=== PATIENT | female | born 1985 | race Caucasian/White ===

== ENCOUNTER 2022-09-11 11:33 | Emergency (ER) | payer SELFPAY ==
[2022-09-11 11:35] VITALS: BP 150/88; PULSE 73; RESP 16; TEMP 36.5; O2SAT 98; BMI 34.7
--- NOTE | 2022-09-11 11:46 | US_ITS ---
INDICATION: bleeding EXAMINATION: Ultrasound US OB Transvaginal TECHNIQUE: Transabdominal pelvic ultrasound was performed. Grayscale, spectral waveform, and color flow Doppler evaluation of the adnexa. COMPARISON: None. LMP: [July 28, 2022 corresponding to gestational age of 6 weeks and 3 days Beta-hCG: Unknown FINDINGS: UTERUS: 8.9 x 4.4 x 5.4 cm. RIGHT OVARY: 3.3 x 3.0 x 2.8 cm. Normal. LEFT OVARY: 3.1 x 2.3 x 2.3 cm. Normal. FREE FLUID: None. INTRAUTERINE GESTATIONAL SAC(s) (size/shape): Single. Size (Mean sac diameter): 0.97 cm corresponding to gestational age of 5 weeks and 5 days and an NATHALY of May 09, 2023. The gestational sac shape is within normal limits. YOLK SAC: Identified the yolk sac measures 0.24 cm. POLE: Not identified. PLACENTA: Not visualized due to age. SUBCHORIONIC HEMORRHAGE: None. US/Transvaginal w/Preg US IMPRESSION: Early intrauterine with no pole identified. Electronically Signed: Maddie Bran MD at 13:23 EST ,
--- NOTE | 2022-09-11 11:48 | ED.VIS.FEGU ---
HPI HPI - Female History of Present Illness Chief Complaint: Vag Bld, Preg Informant: patient Bleeding Issue: Positive for Vaginal bleeding (Spotting spotting) Onset: Today Narrative Narrative: Patient presents secondary to vaginal bleeding. She states she just found out a couple weeks ago that she is with her first . Today when she went to the bathroom she noted some blood with wiping. She has not had any blood in her underwear. She denies any abdominal pain or cramping. She is unsure of her blood type. She is scheduled to see [place] [facility]IM[employer] F[facility]RICATOR but has not yet had her first appointment. [facility] Medical History PCOS (polycystic ovarian syndrome) Home Medications NK 09/11/22 [History Last Taken Unknown] Allergy/AdvReac Type Severity Reaction Status Date / Time No Known Allergies Allergy Verified 09/11/22 11:41 Social History Smoking Status: Never smoker ROS ROS ED Constitutional Constitutional ED: Denies chills or fever(s) Eyes Eyes: Denies change in vision or discharge from eye(s) ENT ENT ED: Denies discharge from eye(s), rhinorrhea or sore throat Cardiovascular Cardiovascular: Denies chest pain or palpitations Respiratory/Chest Respiratory/Chest: Denies cough or dyspnea Gastrointestinal Gastrointestinal: Denies abdominal pain, nausea or vomiting Genitourinary Genitourinary ED: Reports other Details: Vaginal bleeding ; Denies difficulty urinating or dysuria Musculoskeletal Musculoskeletal: Denies back pain or extremity pain Integumentary Denies Abrasions or rash Neurologic Neurologic: Denies headache(s) or weakness Allergic/Immunologic Allergic/Immunologic ED: Denies lip swelling or urticaria EXAM Physical Exam Const Vital Signs: 09/11/22 11:35 09/11/22 13:35 Temperature 97.7 F L Temperature Source Temporal Pulse Rate 73 Respiratory Rate 16 17 Blood Pressure 150/88 H Blood Pressure Mean 108 Pulse Ox 98 Oxygen Delivery Method Room Air Room Air Positive well nourished and well developed General Appearance ED: well developed HEENT Reports normocephalic and head/scalp atraumatic Eyes PERRL and EOMs intact bilaterally Neck supple Chest Wall inspection of chest normal and palpation of chest normal Resp normal respiratory effort and clear to auscultation bilaterally Cardio regular rate and regular rhythm GI normal to inspection, nondistended, normoactive bowel sounds Palpation: soft Extremity normal to inspection Neuro oriented x3 and no sensory deficits noted Sensorium / Orientation: alert Motor Exam: strength 5/5 throughout Psych mental status grossly normal Skin no rashes or lesions noted MDM MDM MDM Narrative Medical decision making narrative: hCG quantitative value is obtained along with blood type. Pelvic ultrasound performed. Lab Data Attestation: I reviewed the patient's lab results. Labs: Laboratory Results - last 24 hr 09/11/22 09/11/22 11:55 11:55 HCG, Quant 6889 H Blood Type O POSITIVE Radiography Diagnostic Testing: Clinical Impression(s) from Imaging Studies Obstetrics Ultrasound 09/11/22 11:46 IMPRESSION: Early intrauterine with no pole identified. Electronically Signed: Maddie Bran MD at 13:23 EST Reading Location ID and State: [facility] / [place] Tel , Service support , Treatment and Re-Evaluation Narrative: Quant returns at [id number]. Blood type is O+. Pelvic ultrasound reveals early intrauterine but no pole identified at this time. Gestational sac measuring's estimate a 5-week 5-day . Test results are discussed with the patient. I did advise her that at this time her values look appropriate, however I cannot guarantee that this will be a successful . She will return in 48 hours for repeat quant. Although she is not scheduled to see her EXPERIMENTAL PLASTICS FABRICATOR until the end of September, I did ask her to call the office on Tuesday and update them on what has occurred. I do believe she would likely need to be seen sooner. Patient was given return instructions. Discharge Plan Triage Chief Complaint: Vag Bld, Preg ED Provider: Priti Cabral Dx/Rx/DC Orders Clinical Impression: Miscarriage, threatened, early Instructions: ED Possible Miscarriage ... Prescriptions: No Action NK Primary Care Provider: Care Physician,No Primary Referrals: Priti Fregoso DO [Med Staff - Active Staff] - 1 Week Care Physician,No Primary [Primary Care Provider] - Activity Restrictions/Additional Instructions: As discussed, please present to the hospital on Tuesday to have your hormone level rechecked. Disposition Disposition: Home, Self Care
[2022-09-11 12:43] LABS: hCG Titer Quant., Serum 6889 mIU/mL (1-3)
[2022-09-11 13:35] VITALS: RESP 17
[2022-09-11 14:03] VITALS: RESP 17
== END 2022-09-11 14:03 | disposition home or self-care (01) ==
PROVIDERS: Emergency Provider Emergency Medicine; Visit Provider Emergency Medicine
DX: O20.0 Threatened abortion (principal); O09.511 Supervision of elderly primigravida, first trimester; Z3A.01 Less than 8 weeks gestation of pregnancy
CPT/HCPCS: 36415; 76817; 84702; 86900; 86901; 99282

== ENCOUNTER → 2022-09-13 | Outpatient (CLI) | payer SELFPAY ==
[2022-09-13 11:35] LABS: hCG Titer Quant., Serum 1565 mIU/mL (1-3)
== END | disposition home or self-care (01) ==
PROVIDERS: Referring Provider Emergency Medicine; Visit Provider Emergency Medicine
DX: O20.0 Threatened abortion (principal)
CPT/HCPCS: 36415; 84702

== ENCOUNTER → 2022-09-21 | Outpatient (CLI) | payer SELFPAY ==
[2022-09-21 11:31] LABS: hCG Titer Quant., Serum 26 mIU/mL (1-3)
== END | disposition home or self-care (01) ==
LOC: LAB 08:12
PROVIDERS: Referring Provider Obstetrics & Gynecology; Visit Provider Obstetrics & Gynecology
DX: O03.9 Complete or unspecified spontaneous abortion without complication (principal)
CPT/HCPCS: 36415; 84702

== ENCOUNTER → 2022-09-28 | Outpatient (CLI) | payer SELFPAY ==
[2022-09-28 09:19] LABS: hCG Titer Quant., Serum 3 mIU/mL (1-3)
== END | disposition home or self-care (01) ==
PROVIDERS: Referring Provider Obstetrics & Gynecology; Visit Provider Obstetrics & Gynecology
DX: O03.9 Complete or unspecified spontaneous abortion without complication (principal)
CPT/HCPCS: 36415; 84702

== ENCOUNTER → 2022-10-25 | Outpatient (CLI) | payer SELFPAY ==
[2022-10-25 10:01] LABS: hCG Titer Quant., Serum 36 mIU/mL (1-3)
== END | disposition home or self-care (01) ==
LOC: LAB 08:46
PROVIDERS: Referring Provider Obstetrics & Gynecology; Visit Provider Obstetrics & Gynecology
DX: N91.2 Amenorrhea, unspecified (principal)
CPT/HCPCS: 36415; 84702

== ENCOUNTER → 2022-10-27 | Outpatient (CLI) | payer SELFPAY ==
[2022-10-27 10:46] LABS: hCG Titer Quant., Serum 84 mIU/mL (1-3)
== END | disposition home or self-care (01) ==
PROVIDERS: Referring Provider Obstetrics & Gynecology; Visit Provider Obstetrics & Gynecology
DX: N91.2 Amenorrhea, unspecified (principal)
CPT/HCPCS: 36415; 84702

== ENCOUNTER → 2022-10-29 | Outpatient (CLI) | payer SELFPAY ==
[2022-10-29 13:01] LABS: Progesterone Level 8.29 ng/mL (See Comment); hCG Titer Quant., Serum 128 mIU/mL (1-3)
== END | disposition home or self-care (01) ==
PROVIDERS: Referring Provider Obstetrics & Gynecology; Visit Provider Obstetrics & Gynecology
DX: N91.2 Amenorrhea, unspecified (principal); N92.0 Excessive and frequent menstruation with regular cycle
CPT/HCPCS: 36415; 84144; 84702

== ENCOUNTER → 2022-10-31 | Outpatient (CLI) | payer SELFPAY ==
[2022-10-31 12:57] LABS: hCG Titer Quant., Serum 274 mIU/mL (1-3)
== END | disposition home or self-care (01) ==
LOC: LAB 12:17
PROVIDERS: Obstetrics & Gynecology; Referring Provider Obstetrics & Gynecology; Visit Provider Obstetrics & Gynecology
DX: N91.2 Amenorrhea, unspecified (principal)
CPT/HCPCS: 36415; 84702

== ENCOUNTER → 2022-11-02 | Outpatient (CLI) | payer SELFPAY ==
[2022-11-02 14:29] LABS: hCG Titer Quant., Serum 343 mIU/mL (1-3)
== END | disposition home or self-care (01) ==
LOC: LAB 12:27
PROVIDERS: Referring Provider Nurse Practitioner Women's Health; Visit Provider Nurse Practitioner Women's Health
DX: N91.0 Primary amenorrhea (principal)
CPT/HCPCS: 36415; 84702

== ENCOUNTER 2022-11-04 15:51 | Emergency (ER) | payer SELFPAY ==
[2022-11-04 15:52] VITALS: BP 137/65; PULSE 77; RESP 15; TEMP 36.7; O2SAT 98; BMI 32.5
[2022-11-04 16:32] LABS: Absolute Lymphocyte Count 1.57 X10^3/uL (0.83-4.51); Absolute Neutrophil Count 5.1 X10^3/uL (2.0-7.7); Basophil# 0.05 X10^3/uL; Basophil% 0.7 % (0-1); Eosinophil# 0.08 X10^3/uL; Eosinophils% 1.1 % (0-5); Hematocrit 41.9 % (37-47); Hemoglobin 13.3 g/dL (12.0-15.0); Lymphocyte # 1.57 X10^3/ul (0.83-4.51); Mean Corp Hgb Conc 31.7 g/dL (32-36); Mean Corpuscular Hgb 28.9 pg (27.0-32.0); Mean Corpuscular Volume 91.1 fL (81-99); Monocyte# 0.66 X10^3/uL; Monocyte% 8.8 % (0-10); NRBC Flagged by Analyzer 0 % (0-5); Neutrophil # 5.11 X10^3/uL (2.7-7.7); Neutrophil % 68.1 % (47-70); Platelet Count 270 K/mm3 (150-450); RBC Distribution Width CV 13.9 % (11.6-14.6); RBC Distribution Width SD 46.7 fl (35.1-43.9); White Blood Count 7.5 K/mm3 (4.4-11.0)
[2022-11-04 16:57] LABS: ALB/GLOB Ratio 1.4 RATIO (0.9-2.4); AST(SGOT) 14 U/L (15-37); Alanine Aminotransfer ALT/SGPT 33 U/L (13-56); Albumin, Serum 3.8 g/dL (3.2-5.0); Alkaline Phosphatase 67 U/L (45-117); Anion Gap 9 (5-15); BUN 15 mg/dL (7-18); BUN/Creat Ratio 24.4 RATIO (10-20); Calcium,Total 9.4 mg/dL (8.5-10.1); Chloride 109 mmol/L (98-107); Creatinine, Serum 0.62 mg/dL (0.55-1.02); EST Glomerular Filtration Rate 115 mL/min (>60); Est Glom Filt Rate - Afr Amer 139 mL/min (>60); Estimated Creatinine Clearance 106.24 ml/min; Globulin 2.8 g/dL (2.2-4.2); Glucose 91 mg/dL (74-106); Potassium 3.5 mmol/L (3.5-5.1); Protein, Total 6.6 g/dL (6.4-8.2); Sodium Level 142 mmol/L (136-145)
--- NOTE | 2022-11-04 17:36 | ED.VIS.FEGU ---
HPI <EMANUEL Flores - Last Filed: 11/04/22 18:02> HPI - Female History of Present Illness Chief Complaint: Narrative Narrative: Is a 37-year-old female with history of PCOS, who presents to the emergency department after a ultrasound showing a ectopic . I spoke with the patient's ELECTRONICS ASSEMBLER AND TESTER Dr. Gómez, the plan for her will be to receive a CBC, CMP to ensure that her liver panel as well as her CBC is unremarkable. Patient will then receive a methotrexate shot. This is secondary to the ectopic . She will follow-up closely with her ELECTRONICS ASSEMBLER AND TESTER outpatient. The patient and the ELECTRONICS ASSEMBLER AND TESTER have been talking today and they know the plan. Patient denies any significant pain, denies any significant vaginal bleeding. Patient's last menstrual cycle was in August when she had a another miscarriage. PFSH <EMANUEL Flores - Last Filed: 11/04/22 18:02> PFS Medical History PCOS (polycystic ovarian syndrome) Home Medications misoprostol 200 mcg tablet (Cytotec) 600 mcg PO ONCE #3 tabs 09/14/22 [Rx Last Taken Unknown] ondansetron 4 mg disintegrating tablet 4 mg PO Q8H PRN PRN Nausea #10 tabs 11/04/22 [Rx Last Taken Unknown] oxycodone-acetaminophen 5 mg-325 mg tablet (Percocet) 1 tab PO Q8H PRN pain 3 days #10 tabs 11/04/22 [Rx Last Taken Unknown] Allergy/AdvReac Type Severity Reaction Status Date / Time No Known Allergies Allergy Verified 09/14/22 14:10 Family History (Updated 09/14/22 @ 14:10 by Shauna Mejia) Mother Heart disease Social History (Updated 09/14/22 @ 14:10 by Shauna Mejia) Smoking Status: Never smoker alcohol intake: never substance use type: does not use caffeine: Yes what type of physical activity do you participate in: none seatbelt use: always do you feel safe at home: Yes additional social history: - [place] ROS <EMANUEL Flores - Last Filed: 11/04/22 18:02> ROS ED ROS Narrative Constitutional: Negative for fever, chills, weight loss, weakness Eyes: Negative for vision loss, vision change, double vision ENT: Negative for any sore throat, ear pain, congestion Cardiovascular: Negative for any chest pain, tightness, palpitations Respiratory: Negative for any cough, sputum production, hemoptysis, dyspnea, dyspnea on exertion, orthopnea Gastrointestinal: Negative for any abdominal pain, nausea, vomiting, diarrhea, constipation, blood in stool, blood in vomit : Negative for any urinary frequency, dysuria, retention, blood in urine. Positive for slight vaginal bleeding, concern for miscarrying Muscle skeletal: Negative for any muscle joint pain, stiffness, myalgias, arthralgias, neck pain, back pain Neurological: Negative for any headache, syncope, numbness or tingling, dizziness Skin: Negative for any rashes, lumps, itching, abrasions, lacerations Psychiatric: Negative for any depression, anxiety, stress, suicidal ideation, homicidal ideation Hematologic: Negative for any easy bruising, excessive bruising, easy bleeding Allergies: Negative for any eczema, hives, rash EXAM <EMANUEL Flores - Last Filed: 11/04/22 18:02> Physical Exam Narrative Exam Narrative: Vital signs reviewed. Patient was in no distress, vital signs are stable. HEET: Head normocephalic atraumatic, TMs clear bilaterally. Posterior pharynx is clear, moist mucous membranes. Nares clear bilaterally. Neck: Supple with no lymphadenopathy or tenderness. No signs of meningismus, negative jolt sign. Cardiac: Regular rate and rhythm no murmurs gallops or rubs, equal peripheral pulses bilaterally. Respiratory: Lungs clear to auscultation bilaterally. No chest tenderness. Abdomen: Soft, nontender, nondistended. No abdominal bruit or pulsatile masses. No hepatosplenomegaly Extremities: No peripheral edema, no signs of gross trauma or deformity. Active full range of motion of all extremities. Neuro: Cranial nerves II through XII intact, no focal neurological deficits. Skin: Clean dry and intact with no rash, purpura, petechiae, vesicles or pustules. Backs/flank: No CVA tenderness, no midline spinal tenderness, no deformity. Psych: Normal mood and affect. No SI, HI or acute psychosis. Const Vital Signs: 11/04/22 15:52 11/04/22 18:34 Temperature 98.1 F Temperature Source Temporal Pulse Rate 77 75 Respiratory Rate 15 14 Blood Pressure 137/65 H 123/75 H Blood Pressure Mean 89 Pulse Ox 98 99 Oxygen Delivery Method Room Air <Dr. Paul Boyer DO - Last Filed: 11/04/22 20:30> Physical Exam Const Vital Signs: 11/04/22 15:52 11/04/22 18:34 Temperature 98.1 F Temperature Source Temporal Pulse Rate 77 75 Respiratory Rate 15 14 Blood Pressure 137/65 H 123/75 H Blood Pressure Mean 89 Pulse Ox 98 99 Oxygen Delivery Method Room Air MDM <EMANUEL Flroes - Last Filed: 11/04/22 18:02> MDM Lab Data Attestation: I reviewed the patient's lab results. Labs: Laboratory Results - last 24 hr 11/04/22 11/04/22 16:25 16:25 WBC 7.5 RBC 4.60 Hgb 13.3 Hct 41.9 MCV 91.1 MCH 28.9 MCHC 31.7 L RDW Std Deviation 46.7 H RDW Coeff of Trish 13.9 Plt Count 270 MPV 10.0 Immature Gran % (Auto) 0.300 Neut % (Auto) 68.1 Lymph % (Auto) 21.0 Lamoure % (Auto) 8.8 Eos % (Auto) 1.1 Baso % (Auto) 0.7 Absolute Neuts (auto) 5.1 Absolute Lymphs (auto) 1.57 Nucleated RBC % 0 Sodium 142 Potassium 3.5 Chloride 109 H Carbon Dioxide 24.0 Anion Gap 9 BUN 15 Creatinine 0.62 Estim Creat Clear Calc 106.24 Est GFR (MDRD) Af Amer 139 Est GFR (MDRD) Non-Af 115 BUN/Creatinine Ratio 24.4 H Glucose 91 Calcium 9.4 Total Bilirubin 0.40 AST 14 L ALT 33 Alkaline Phosphatase 67 Total Protein 6.6 Albumin 3.8 Globulin 2.8 Albumin/Globulin Ratio 1.4 Management Discussion w/another healthcare provider: [facility] Treatment and Re-Evaluation Narrative: Patient appears well, patient appears nontoxic, vital signs are stable. Patient presents to the emergency department for a methotrexate shot secondary to a ectopic found on her ultrasound. I did speak with the patient as well as the patient's ELECTRONICS ASSEMBLER AND TESTER. Looked at the patient's ultrasound from today, there is an ectopic along the right ovary. There is no intrauterine sac. There is no intrauterine . The patient is aware. The patient received 95.5 mg of methotrexate. I will give the medication myself. I did speak with the patient's ELECTRONICS ASSEMBLER AND TESTER who will follow-up with this in the next couple days. Both the patient and her were in the room, given education regarding the shot. As well as different dietary restrictions. All questions answered, patient will follow-up outpatient. She was given return precautions. Patient received 3.8 mL of methotrexate IM. I was able to split it up between 2 different injections to both gluteus muscles. Patient tolerated well. All questions were answered, patient will follow-up with her ELECTRONICS ASSEMBLER AND TESTER. <Dr. Paul Boyer, DO - Last Filed: 11/04/22 20:30> MDM MDM Narrative Medical decision making narrative: This patient was seen with a PA/SENIOR ECOLOGIST Individually assessed they patient including history and physical. I have reviewed everything on the chart that is available and agree with the documentation provided by the PA/SENIOR ECOLOGIST including discussion about the assessment, treatment plan, discussion, and return precautions. Patient with small ectopic found when hCG numbers were not increasing. Does not any pain. She has had some vaginal bleeding. Referred to the ER by ELECTRONICS ASSEMBLER AND TESTER. Patient had normal CBC and CMP in order to get methotrexate. These labs are normal. Patient was given IM methotrexate. Patient discharged stable condition. Impression: 1. Ectopic 2. Vaginal bleeding Lab Data Labs: Laboratory Results - last 24 hr 11/04/22 11/04/22 16:25 16:25 WBC 7.5 RBC 4.60 Hgb 13.3 Hct 41.9 MCV 91.1 MCH 28.9 MCHC 31.7 L RDW Std Deviation 46.7 H RDW Coeff of Trish 13.9 Plt Count 270 MPV 10.0 Immature Gran % (Auto) 0.300 Neut % (Auto) 68.1 Lymph % (Auto) 21.0 Lamoure % (Auto) 8.8 Eos % (Auto) 1.1 Baso % (Auto) 0.7 Absolute Neuts (auto) 5.1 Absolute Lymphs (auto) 1.57 Nucleated RBC % 0 Sodium 142 Potassium 3.5 Chloride 109 H Carbon Dioxide 24.0 Anion Gap 9 BUN 15 Creatinine 0.62 Estim Creat Clear Calc 106.24 Est GFR (MDRD) Af Amer 139 Est GFR (MDRD) Non-Af 115 BUN/Creatinine Ratio 24.4 H Glucose 91 Calcium 9.4 Total Bilirubin 0.40 AST 14 L ALT 33 Alkaline Phosphatase 67 Total Protein 6.6 Albumin 3.8 Globulin 2.8 Albumin/Globulin Ratio 1.4 Discharge Plan Triage Chief Complaint: ED Midlevel Provider: Santy Mcguire ED Provider: Paul Boyer Dx/Rx/DC Orders Clinical Impression: Ectopic Instructions: Ectopic , Methotrexate Ectopic , ED Methotrexate for Ectopic ... Prescriptions: New oxycodone-acetaminophen [Percocet] 5-325 mg tablet 1 tab PO Q8H PRN (Reason: pain) 3 Days Qty: 10 0RF ondansetron 4 mg tablet,disintegrating 4 mg PO Q8H PRN PRN (Reason: Nausea) Qty: 10 0RF No Action misoprostol [Cytotec] 200 mcg tablet 600 mcg PO ONCE Qty: 3 0RF Primary Care Provider: Care Physician,No Primary Referrals: Care Physician,No Primary [Primary Care Provider] - Disposition Disposition: Home, Self Care Discharge Date/Time: 11/04/22 18:35
--- NOTE | 2022-11-04 18:07 | ED.RN ---
PT GIVEN IM INJECTION OF METHOTREXATE PER JELLY KEATING
[2022-11-04 18:34] VITALS: BP 123/75; PULSE 75; RESP 14; O2SAT 99
== END 2022-11-04 18:35 | disposition home or self-care (01) ==
PROVIDERS: Nurse Practitioner; Emergency Provider Student in an Organized Health Care Education/Training Program; Visit Provider Student in an Organized Health Care Education/Training Program
DX: O00.90 Unspecified ectopic pregnancy without intrauterine pregnancy (principal)
CPT/HCPCS: 80053; 85025; 99282; J9250

== ENCOUNTER → 2022-11-04 | Outpatient (CLI) | payer SELFPAY ==
--- NOTE | 2022-11-04 15:05 | US_ITS ---
STUDY: FIRST TRIMESTER OBSTETRICAL ULTRASOUND REASON FOR EXAM: Female, 37 years old viability/ectopic LMP: Unknown. TECHNIQUE: Transvaginal TECHNICAL QUALITY: Adequate. PRIOR ULTRASOUND: None. FINDINGS: There is no demonstrated intrauterine gestational sac. There is no demonstrated yolk sac. The placenta is non-visualized. There is no demonstrated embryo ( pole). The uterus measures 8.1 cm x 5.5 cm x 4.6 cm. Thickened endometrium measuring 12 mm. There is no demonstrated uterine fibroid. The cervix is closed. The right ovary measures 3.1 cm x 3.3 cm x 2.1 cm. There is a 2.2 cm x 1.7 cm x 1.3 cm complex mass in the right ovary with vascularity. Ectopic should be ruled out. There is no visualized right adnexal mass or complex lesion. The left ovary measures 3 cm x 2.3 cm x 2.6 cm. There is no left ovarian cyst. There is no visualized left adnexal mass or complex lesion. There is no fluid in the cul de sac. US/Transvaginal w/Preg US IMPRESSION: No evidence of intrauterine gestation. Findings suggestive of a right ectopic . Electronically Signed: Ken You MD at 16:03 EDT ,
== END | disposition home or self-care (01) ==
PROVIDERS: Referring Provider Obstetrics & Gynecology; Visit Provider Obstetrics & Gynecology
DX: N92.0 Excessive and frequent menstruation with regular cycle (principal)
CPT/HCPCS: 76817

== ENCOUNTER → 2022-11-08 | Outpatient (CLI) | payer SELFPAY ==
[2022-11-08 12:39] LABS: hCG Titer Quant., Serum 241 mIU/mL (1-3)
== END | disposition home or self-care (01) ==
LOC: LAB 11:21
PROVIDERS: Visit Provider Obstetrics & Gynecology
DX: O03.9 Complete or unspecified spontaneous abortion without complication (principal)
CPT/HCPCS: 36415; 84702

== ENCOUNTER → 2022-11-11 | Outpatient (CLI) | payer SELFPAY ==
[2022-11-11 08:29] LABS: hCG Titer Quant., Serum 342 mIU/mL (1-3)
== END | disposition home or self-care (01) ==
PROVIDERS: Referring Provider Obstetrics & Gynecology; Visit Provider Obstetrics & Gynecology
DX: O03.9 Complete or unspecified spontaneous abortion without complication (principal)
CPT/HCPCS: 36415; 84702

== ENCOUNTER → 2022-11-15 | Outpatient (CLI) | payer SELFPAY ==
[2022-11-15 09:09] LABS: hCG Titer Quant., Serum 102 mIU/mL (1-3)
== END | disposition home or self-care (01) ==
LOC: LAB 07:55
PROVIDERS: Referring Provider Obstetrics & Gynecology; Visit Provider Obstetrics & Gynecology
DX: O00.90 Unspecified ectopic pregnancy without intrauterine pregnancy (principal)
CPT/HCPCS: 36415; 84702

== ENCOUNTER → 2022-11-18 | Outpatient (CLI) | payer SELFPAY ==
[2022-11-18 09:02] LABS: hCG Titer Quant., Serum 29 mIU/mL (1-3)
== END | disposition home or self-care (01) ==
LOC: LAB 07:56
PROVIDERS: Referring Provider Obstetrics & Gynecology; Visit Provider Obstetrics & Gynecology
DX: O00.90 Unspecified ectopic pregnancy without intrauterine pregnancy (principal)
CPT/HCPCS: 36415; 84702

== ENCOUNTER → 2022-11-25 | Outpatient (CLI) | payer SELFPAY ==
[2022-11-25 08:45] LABS: hCG Titer Quant., Serum < 1 mIU/mL (1-3)
== END | disposition home or self-care (01) ==
LOC: LAB 07:58
PROVIDERS: Referring Provider Obstetrics & Gynecology; Visit Provider Obstetrics & Gynecology
DX: O00.90 Unspecified ectopic pregnancy without intrauterine pregnancy (principal)
CPT/HCPCS: 36415; 84702

== ENCOUNTER → 2022-12-10 | Outpatient (CLI) | payer SELFPAY ==
[2022-12-10 14:40] LABS: Follicle Stimulating Hormone 5.1 mIU/mL; Luteinizing Hormone 11.7 mIU/mL; Thyroid Stim Hormone (TSH) 0.94 uIU/mL (0.358-3.74)
== END | disposition home or self-care (01) ==
LOC: LAB 13:43
PROVIDERS: Referring Provider Obstetrics & Gynecology; Visit Provider Obstetrics & Gynecology
DX: N91.2 Amenorrhea, unspecified (principal)
CPT/HCPCS: 36415; 82670; 83001; 83002; 83516; 84443

== ENCOUNTER → 2022-12-27 | Outpatient (CLI) | payer SELFPAY ==
--- NOTE | 2022-12-27 11:38 | RAD_ITS ---
INDICATION: recurrent miscarriages EXAMINATION/TECHNIQUE: Routine hysterosalpingography was performed. Total Fluoroscopic Time: 49 seconds AND number of Fluoroscopic Images: 2 OR Radiation dosage index: 22.34 mGy COMPARISON: None. FINDINGS: The uterine cavity contour is unremarkable. There are no filling defects or abnormalities. There is patency of the right fallopian tube with free spill. Dilated proximal left fallopian tube. No evidence of spill from the left fallopian tube. RAD/Salpingogram IMPRESSION: Patency of the right fallopian tube. Electronically Signed: Ken You MD at 12:52 EDT ,
--- NOTE | 2022-12-27 15:25 | OP.PCM_ITS ---
Operative Report Preop diagnosis: Infertility Postop diagnosis: Same plus definite right patency, possible bilateral tubal patency, left mild hydrosalpinx Procedure: Hysterosalpingogram Surgeon: Sunita Mccray Implantable devices: None Complications: None Findings: questionable Bilateral tubal patency and normal uterine cavity dilated left tube proximally- possible spill Operative details: Patient was taken to the x-ray room and was placed on the x- ray table and was in the dorsal lithotomy position. Speculum was placed in the vagina and the cervix prepped with Betadine and the HSG catheter was easily introduced into the uterus and speculum removed. Radiologist was brought in and while pushing radiopaque dye into the uterus via the HSG catheter the radiologist took multiple images and views and confirmed right tubal patency seen, left tube proximally was dilated and possible spill seen from that tube but unable to completely confirm. No gross uterine filling defects or other abnormalities were seen. All instruments removed from the vagina and the uterus without complication. Patient tolerated the procedure well. Multi Select Codes Urinary/Genital Urinary/Genital CPT Codes: 81435 HSG/SIS
== END | disposition home or self-care (01) ==
LOC: RAD 11:38
PROVIDERS: Referring Provider Obstetrics & Gynecology; Visit Provider Obstetrics & Gynecology
DX: O03.9 Complete or unspecified spontaneous abortion without complication (principal)
CPT/HCPCS: 58340; 74740; Q9967

== ENCOUNTER → 2023-02-18 | Outpatient (CLI) | payer SELFPAY ==
[2023-02-18 10:41] LABS: hCG Titer Quant., Serum 49 mIU/mL (1-3)
== END | disposition home or self-care (01) ==
PROVIDERS: PCP Nurse Practitioner Primary Care; Referring Provider Obstetrics & Gynecology; Visit Provider Obstetrics & Gynecology
DX: N91.2 Amenorrhea, unspecified (principal)
CPT/HCPCS: 36415; 84702

== ENCOUNTER → 2023-02-20 | Outpatient (CLI) | payer SELFPAY ==
[2023-02-20 10:25] LABS: hCG Titer Quant., Serum 140 mIU/mL (1-3)
== END | disposition home or self-care (01) ==
LOC: LAB 09:37
PROVIDERS: PCP Nurse Practitioner Primary Care; Visit Provider Obstetrics & Gynecology
DX: N91.2 Amenorrhea, unspecified (principal)
CPT/HCPCS: 36415; 84702

== ENCOUNTER → 2023-02-28 | Outpatient (CLI) | payer SELFPAY ==
[2023-02-28 11:36] LABS: hCG Titer Quant., Serum 4460 mIU/mL (1-3)
== END | disposition home or self-care (01) ==
LOC: LAB 10:18
PROVIDERS: PCP Nurse Practitioner Primary Care; Referring Provider Nurse Practitioner Women's Health; Visit Provider Nurse Practitioner Women's Health
DX: O26.859 Spotting complicating pregnancy, unspecified trimester (principal); Z3A.00 Weeks of gestation of pregnancy not specified
CPT/HCPCS: 36415; 84702

== ENCOUNTER → 2023-03-01 | Outpatient (CLI) | payer SELFPAY ==
--- NOTE | 2023-03-01 15:40 | US_ITS ---
STUDY: FIRST TRIMESTER OBSTETRICAL ULTRASOUND REASON FOR EXAM: Female, 38 years old dating/ well being LMP: 01/21/2023 TECHNIQUE: Transvaginal TECHNICAL QUALITY: Adequate. PRIOR ULTRASOUND: None. FINDINGS: There is no demonstrated intrauterine gestational sac. The uterus measures 8.6 x 4.5 x 6.0 cm. There is no demonstrated uterine fibroid. The cervix is closed. The right ovary measures 3.5 x 2.7 x 2.7 cm. There is a 1.8 cm complex solid and cystic area within the right ovary which may simply represent a follicle but ectopic cannot be excluded. There is no visualized right adnexal mass or complex lesion. The left ovary measures 3.3 x 2.0 x 2.0 cm. There is no left ovarian cyst. There is no visualized left adnexal mass or complex lesion. There is no fluid in the cul de sac. US/Transvaginal w/Preg US IMPRESSION: No intrauterine gestational sac with a questionable mass in the right ovary. Differential diagnosis includes an early intrauterine , early ectopic , or missed . Correlation with serial beta-hCG measurements is recommended. Electronically Signed: Phillip Rodriguez MD at 21:35 EDT ,
== END | disposition home or self-care (01) ==
LOC: US 15:39
PROVIDERS: PCP Nurse Practitioner Primary Care; Referring Provider Obstetrics & Gynecology; Visit Provider Obstetrics & Gynecology
DX: Z34.91 Encounter for supervision of normal pregnancy, unspecified, first trimester (principal); Z87.59 Personal history of other complications of pregnancy, childbirth and the puerperium; Z3A.00 Weeks of gestation of pregnancy not specified
CPT/HCPCS: 76817

== ENCOUNTER → 2023-03-02 | Outpatient (CLI) | payer SELFPAY ==
[2023-03-02 11:44] LABS: hCG Titer Quant., Serum 950 mIU/mL (1-3)
[2023-03-02 14:45] LABS: Absolute Lymphocyte Count 1.87 X10^3/uL (0.83-4.51); Absolute Neutrophil Count 6.5 X10^3/uL (2.0-7.7); Basophil# 0.04 X10^3/uL; Basophil% 0.4 % (0-1); Eosinophil# 0.07 X10^3/uL; Eosinophils% 0.8 % (0-5); Hematocrit 44.6 % (37-47); Hemoglobin 14.3 g/dL (12.0-15.0); Lymphocyte # 1.87 X10^3/ul (0.83-4.51); Lymphocyte % 20.4 % (19-41); Mean Corp Hgb Conc 32.1 g/dL (32-36); Mean Corpuscular Volume 93.5 fL (81-99); Mean Platelet Vol. 9.6 fl (6.2-12.0); Monocyte# 0.64 X10^3/uL; NRBC Flagged by Analyzer 0 % (0-5); Neutrophil # 6.51 X10^3/uL (2.7-7.7); Neutrophil % 70.9 % (47-70); Platelet Count 294 K/mm3 (150-450); RBC Distribution Width CV 14.5 % (11.6-14.6); Red Blood Count 4.77 M/mm3 (4.2-5.4); White Blood Count 9.2 K/mm3 (4.4-11.0)
[2023-03-02 14:51] LABS: ALB/GLOB Ratio 1.2 RATIO (0.9-2.4); AST(SGOT) 13 U/L (15-37); Alanine Aminotransfer ALT/SGPT 36 U/L (13-56); Albumin, Serum 3.8 g/dL (3.2-5.0); Alkaline Phosphatase 68 U/L (45-117); Anion Gap 7 (5-15); BUN 13 mg/dL (7-18); BUN/Creat Ratio 16.8 RATIO (10-20); Calcium,Total 8.9 mg/dL (8.5-10.1); Chloride 106 mmol/L (98-107); Creatinine, Serum 0.77 mg/dL (0.55-1.02); EST Glomerular Filtration Rate 88 mL/min (>60); Est Glom Filt Rate - Afr Amer 107 mL/min (>60); Globulin 3.2 g/dL (2.2-4.2); Glucose 99 mg/dL (74-106); Potassium 3.8 mmol/L (3.5-5.1); Sodium Level 138 mmol/L (136-145)
== END | disposition home or self-care (01) ==
PROVIDERS: PCP Nurse Practitioner Primary Care; Referring Provider Nurse Practitioner Women's Health; Visit Provider Nurse Practitioner Women's Health
DX: O00.90 Unspecified ectopic pregnancy without intrauterine pregnancy (principal); O26.859 Spotting complicating pregnancy, unspecified trimester
CPT/HCPCS: 36415; 80053; 84702; 85025

== ENCOUNTER → 2023-03-07 | Outpatient (CLI) | payer SELFPAY ==
[2023-03-07 09:23] LABS: hCG Titer Quant., Serum 62 mIU/mL (1-3)
== END | disposition home or self-care (01) ==
LOC: LAB 08:07
PROVIDERS: PCP Nurse Practitioner Primary Care; Referring Provider Obstetrics & Gynecology; Visit Provider Obstetrics & Gynecology
DX: O09.90 Supervision of high risk pregnancy, unspecified, unspecified trimester (principal); Z3A.00 Weeks of gestation of pregnancy not specified
CPT/HCPCS: 36415; 84702

== ENCOUNTER → 2023-03-10 | Outpatient (CLI) | payer SELFPAY ==
[2023-03-10 09:29] LABS: hCG Titer Quant., Serum 17 mIU/mL (1-3)
== END | disposition home or self-care (01) ==
LOC: LAB 07:56
PROVIDERS: PCP Nurse Practitioner Primary Care; Referring Provider Obstetrics & Gynecology; Visit Provider Obstetrics & Gynecology
DX: O00.90 Unspecified ectopic pregnancy without intrauterine pregnancy (principal); Z3A.00 Weeks of gestation of pregnancy not specified
CPT/HCPCS: 36415; 84702

== ENCOUNTER → 2023-03-16 | Outpatient (CLI) | payer SELFPAY ==
[2023-03-16 15:42] LABS: hCG Titer Quant., Serum 2 mIU/mL (1-3)
== END | disposition home or self-care (01) ==
LOC: LAB 14:36
PROVIDERS: PCP Nurse Practitioner Primary Care; Referring Provider Obstetrics & Gynecology; Visit Provider Obstetrics & Gynecology
DX: O00.90 Unspecified ectopic pregnancy without intrauterine pregnancy (principal)
CPT/HCPCS: 36415; 84702

== ENCOUNTER → 2023-04-01 | Outpatient (CLI) | payer SELFPAY ==
[2023-04-01 12:04] LABS: Fibrinogen 407 mg/dl (203-444); Partial Thromboplast Time 26.5 Seconds (24.1-36.2)
[2023-04-11 13:07] LABS: Anti-Cardiolipin Ab, IgA, Qn < 9 APL U/mL (0-11); Anti-Cardiolipin Ab, IgG, Qn < 9 GPL U/mL (0-14); Anti-Cardiolipin Ab, IgM, Qn 9 MPL U/mL (0-12); Beta-2-Glycoprotein I IgA <9 (0-25); Beta-2-Glycoprotein I IgG <9 (0-20); Beta-2-Glycoprotein I IgM <9 (0-32); Dilute Russell Viper Venom 31.1 sec (0.0-47.0); Interpretation Comment: (.); Protein C Antigen 83 % (60-150); Protein C, Functional 112 % (73-180); Protein S, Free 90 % (61-136); Protein S, Funtional 58 % (63-140); Protein S, Total 82 % (60-150); Thrombin Time 17.1 sec (0.0-23.0); dPT CONFIRMATION RATIO 1.02 Ratio (0.00-1.34)
== END | disposition home or self-care (01) ==
LOC: LAB 11:06
PROVIDERS: PCP Nurse Practitioner Primary Care; Referring Provider Obstetrics & Gynecology; Visit Provider Obstetrics & Gynecology
DX: O03.9 Complete or unspecified spontaneous abortion without complication (principal); N96 Recurrent pregnancy loss; O26.851 Spotting complicating pregnancy, first trimester; O99.891 Other specified diseases and conditions complicating pregnancy; Z3A.00 Weeks of gestation of pregnancy not specified
CPT/HCPCS: 36415; 81241; 81291; 85302; 85303; 85305; 85306; 85384; 85705; 85730; 86146; 86147

== ENCOUNTER → 2023-05-03 | Outpatient (CLI) | payer SELFPAY ==
[2023-05-06 06:08] LABS: Protein S, Free 94 % (61-136); Protein S, Funtional 80 % (63-140); Protein S, Total 80 % (60-150)
== END | disposition home or self-care (01) ==
LOC: LAB 13:45
PROVIDERS: PCP Nurse Practitioner Primary Care; Referring Provider Obstetrics & Gynecology; Visit Provider Obstetrics & Gynecology
DX: O00.90 Unspecified ectopic pregnancy without intrauterine pregnancy (principal)
CPT/HCPCS: 36415; 85305; 85306

== ENCOUNTER → 2023-05-16 | Outpatient (CLI) | payer SELFPAY ==
--- NOTE | 2023-05-16 15:45 | US_ITS ---
STUDY: ULTRASOUND OF THE FEMALE PELVIS - COMPLETE REASON FOR EXAM: Female, 38 years old. Hydrosalpinx LMP: May 06, 2023. TECHNIQUE: Transabdominal and Transvaginal TECHNICAL QUALITY: Adequate. COMPARISON: None. FINDINGS: The uterus is anteverted and is in a midline position. The uterus measures 9 cm x 5.5 cm x 3.6 cm. Normal uterine cervix. The endometrium measures 7 mm in thickness, and is hyperechoic. There is no demonstrated endometrial mass. There is no demonstrated myometrial mass. I.U.D. - The patient does not have an I.U.D. The right ovary is visualized. The right ovary measures 3.3 cm x 2.8 cm x 2.7 cm. A dominant follicle is seen measuring 1.1 cm x 0.9 cm x 0.9 cm. There is no visualized right adnexal mass or complex lesion. There is normal arterial and normal venous vascularity. The left ovary is visualized. The left ovary measures 3.5 cm x 2.5 cm x 2.8 cm. A dominant follicle is seen measuring 1.6 x 1.17 x 1.3 cm. A tubular nonvascular structure is seen in the left adnexa measuring 3 mm. This may represent a left-sided hydrosalpinx. There is normal arterial and normal venous vascularity. There is no fluid in the cul-de-sac. The pre void volume of the bladder was 603 ml. US/Pelvic w/ Transvaginal IMPRESSION: Dominant follicles are seen in both ovaries. Findings suggestive of a left-sided hydrosalpinx measuring 3 mm in diameter. Electronically Signed: Ken You MD at 9:25 EDT ,
== END | disposition home or self-care (01) ==
LOC: US 15:45
PROVIDERS: PCP Nurse Practitioner Primary Care; Referring Provider Obstetrics & Gynecology; Visit Provider Obstetrics & Gynecology
DX: N70.11 Chronic salpingitis (principal)
CPT/HCPCS: 76830; 76856

== ENCOUNTER → 2023-07-04 | Outpatient (CLI) | payer SELFPAY ==
[2023-07-04 15:18] LABS: Absolute Lymphocyte Count 1.32 X10^3/uL (0.83-4.51); Absolute Neutrophil Count 5.3 X10^3/uL (2.0-7.7); Basophil# 0.02 X10^3/uL; Basophil% 0.3 % (0-1); Eosinophil# 0.06 X10^3/uL; Eosinophils% 0.8 % (0-5); Hemoglobin 14.3 g/dL (12.0-15.0); Lymphocyte # 1.32 X10^3/ul (0.83-4.51); Lymphocyte % 18.5 % (19-41); Mean Corp Hgb Conc 32.5 g/dL (32-36); Mean Corpuscular Hgb 30.3 pg (27.0-32.0); Mean Corpuscular Volume 93.2 fL (81-99); Monocyte# 0.48 X10^3/uL; Monocyte% 6.7 % (0-10); NRBC Flagged by Analyzer 0 % (0-5); Neutrophil # 5.25 X10^3/uL (2.7-7.7); Neutrophil % 73.4 % (47-70); Platelet Count 253 K/mm3 (150-450); RBC Distribution Width SD 48.1 fl (35.1-43.9); Red Blood Count 4.72 M/mm3 (4.2-5.4); White Blood Count 7.2 K/mm3 (4.4-11.0)
[2023-07-04 15:31] LABS: Erythrocyte Sedimentation Rate 1 mm/hr (0-30)
[2023-07-04 16:02] LABS: ALB/GLOB Ratio 1.3 RATIO (0.9-2.4); AST(SGOT) 10 U/L (15-37); Alanine Aminotransfer ALT/SGPT 25 U/L (13-56); Alkaline Phosphatase 68 U/L (45-117); Anion Gap 7 (5-15); BUN 21 mg/dL (7-18); BUN/Creat Ratio 30.4 RATIO (10-20); CRP < 2.90 mg/L (0.0-3.0); Calcium,Total 8.7 mg/dL (8.5-10.1); Chloride 109 mmol/L (98-107); Creatinine, Serum 0.69 mg/dL (0.55-1.02); EST Glomerular Filtration Rate 100 mL/min (>60); Est Glom Filt Rate - Afr Amer 122 mL/min (>60); Globulin 3.1 g/dL (2.2-4.2); Glucose 93 mg/dL (74-106); Potassium 3.8 mmol/L (3.5-5.1); Protein, Total 7.1 g/dL (6.4-8.2); Sodium Level 142 mmol/L (136-145); T4 Free Direct 1.03 ng/dL (0.76-1.46); Thyroid Stim Hormone (TSH) 0.86 uIU/mL (0.358-3.74)
[2023-07-06 14:09] LABS: Anti-Nuclear Antibody Test Negative (.); Anti-dsDNA Ab <1 IU/mL (0-9); RNP Ab <0.2 AI (0.0-0.9); Smith Ab <0.2 AI (0.0-0.9)
== END | disposition home or self-care (01) ==
LOC: LAB 14:01
PROVIDERS: PCP Nurse Practitioner Primary Care; Referring Provider Physician Assistant; Visit Provider Physician Assistant
DX: D89.89 Other specified disorders involving the immune mechanism, not elsewhere classified (principal)
CPT/HCPCS: 36415; 80053; 84439; 84443; 85025; 85652; 86038; 86140; 86225; 86235

== ENCOUNTER 2023-07-12 10:30 | Day surgery (SDC) | payer SELFPAY ==
[2023-07-04 14:27] LABS: Hematocrit 43.1 % (37-47); Hemoglobin 13.8 g/dL (12.0-15.0); Mean Corpuscular Hgb 29.5 pg (27.0-32.0); Mean Corpuscular Volume 92.1 fL (81-99); Platelet Count 241 K/mm3 (150-450); RBC Distribution Width SD 47.5 fl (35.1-43.9); Red Blood Count 4.68 M/mm3 (4.2-5.4)
--- NOTE | 2023-07-12 | UTC_PTH ---
PATIENT: ANGELA HOOKER LOC: [facility] – [place] U#:[id number] AGE/SX: 38/F ROOM: RE07/12/[address]: Dr. Priti Fregoso DO : 1985 BED: DIS: 07/12/2023 SPEC #: [id number] RECD: 07/12/23 14:15 STATUS: ISAAC DASILVAClarice #: [id number] JAYDE: 07/12/23 00:[address]: Priti Fregoso DEPT: SURGICAL PATHOLOGY RECD BY: Augustus Burch ENTERED: 07/13/23 07:36 SP TYPE: CA RANGEL GALLEGO DR: Dorcas Lal NP Tissues: Uterine cervix, NOS Procedures: Surgery Specimen Level IV HEADER OPERATION: Diagnostic laparoscopy, chromopertubation PRE-OP DIAGNOSIS: Amenorrhea, ectopic TISSUE SUBMITTED: Uterine curettings MICROSCOPIC DIAGNOSIS Endometrium, curettings: Secretory endometrium with stromal and focal glandular breakdown. AM:torie 07/14/2023 MICROSCOPIC DESCRIPTION Slides are reviewed. GROSS DESCRIPTION Received in fixative is one container labeled with the patient's name and designated uterine curettings. The specimen consists of multiple irregular fragments of light to dark lorenz soft tissue that in aggregate measure 2.5 x 1.5 x 0.1 cm. The specimen is totally submitted in one cassette. / AM:torie 07/13/2023 TC:5 CPT: 70375
[2023-07-12 10:58] LABS: Internal QC Validated? YES +Cl - CLEAR BKGD; Pregnancy, Urine Negative Negative; Record Kit Lot#,Urine Preg HCG0000667200
[2023-07-12] MEDS: Lactated Ringers 1,000 ML 15 ML IV (11:03)
[2023-07-12 11:04] VITALS: BP 139/70; PULSE 63; RESP 18; TEMP 36.3; O2SAT 100; BMI 29.5
--- NOTE | 2023-07-12 12:05 | DCINST_ITS ---
Discharge Instructions Diet Discharge Diet: No restrictions Activity Discharge Activity: Return to Normal Activity, May Not Drive (for two weeks or while taking narcotic pain medications.), May Shower and May Take a Tub Bath (in 7 days) May resume sexual activity in: 1 week Weight Bearing Status: Full weight bearing Dressing / Incision Call your doctor if you observe: Using more than 1 pad per hour, Shortness of breath, Chest pain and Uncontrolled pain Suture Line Care: Avoid Pulling/Pushing and Avoid Pinching/Bending Remove Dressing in: 1 week (if present) Cleanse incision/area with: Soap & Water and Keep Dressing Clean & Dry Follow Up Care Please Follow Up With: Priti Fregoso DO When: Call to make an appointment with your doctor for a follow up incision check in 1-2 weeks. Test Results: Test results from this visit will be discussed in further detail at your follow- up appointment, if applicable. Discharge Plan Admission Primary Reason for Your Visit: laparoscopy Attending Provider: Priti Fregoso Primary Care Provider: Dorcas Lal NP Discharge Orders/Prescriptions Prescriptions: New oxycodone-acetaminophen [Percocet] 5-325 mg tablet 1 tab PO Q4H PRN (Reason: pain) 7 Days Qty: 10 0RF Rx Instructions: 1-2 tabs q 4 hrs as needed for pain naproxen 500 mg tablet 500 mg PO BID PRN (Reason: pain) Qty: 30 0RF No Action Prenatabs FA 29-1 mg tablet 1 tab PO DAILY Referrals / Follow Up: Dorcas Lal NP, T[employer] C[employer] ATTENDANT-C [Primary Care Provider] - Disposition Disposition (needs filled in before D/C Order can be placed): Home, Self Care
--- NOTE | 2023-07-12 12:05 | PCM.HP.BLA ---
History and Physical Date of Admission: 07/12/23 Intake Vital Signs 03/16/2313:39 07/04/2314:21 07/04/2314:22 Height 5 ft 4 in 5 ft 4 in 5 ft 4 in Weight: 173 lb BMI 29.7 BP 138/87 H Intake Visit Reasons: diag. 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 Required: No Is patient in pain?: No Allergies No Known Allergies Allergy (Verified 07/04/23 14:21) Medications vits,calcium no.78-iron fumarate-folic acid 29 mg-1 mg tablet (Prenatabs FA) 1 tab PO DAILY 06/27/23 [History Confirmed 07/04/23] Post menopausal: No Patient : No : No PFSH Medical History Amenorrhea Back pain Leg cramps Loose, teeth Migraine headache Miscarriage Non-smoker PCOS (polycystic ovarian syndrome) Spotting Surgical History Hx of wisdom tooth extraction Family History Mother Heart disease Social History Smoking Status: Never smoker alcohol intake: never substance use type: does not use caffeine: Yes what type of physical activity do you participate in: none seatbelt use: always do you feel safe at home: Yes additional social history: - [place] HPI diag. lap, chromopertubation, possible fulguration Details: ANGELA HOOKER is a 38 year old who presents for follow up miscarriage vs ectopic and treatment with methotrexate. last quant was 17. She is wanting more definitive answers as to why she has had 2 ectopic pregnancies in a row. Her hsg in November showed hydrosalpinx of the left fallopian tube, however this last ultrasound showed a possible ectopic on the right side. She is not interested in seeing RGI again and is scheduled for a diagnostic laparoscopy, fulguration of endometriosis, chromopertubation, and possible left salpingectomy. History 2 Elective abortions Hx Para 0 Spontaneous abortions 1 Hx # Term Pregnancies Ectopic pregnancies 1 Hx # Pregnancies Multiple births # of living children ROS Const ROS Unobtainable: All systems reviewed & are unremarkable except as noted in H Resp Resp: Reports system reviewed and no additional complaints, except as documented; Denies cough GI GI: Reports as per HPI Psych Psych: Reports system reviewed and no additional complaints, except as documented Exam Const General: cooperative, healthy appearing, comfortable and no acute distress Resp Effort & Inspection: normal respiratory effort Skin General: no rashes or lesions noted Psych Appearance: grossly normal Speech and Movement: speech and movement normal Coding Level of Care Code Off vis,est,level 3 Diagnoses Amenorrhea N91.2 Ectopic O00.90 Assessment and Plan Assessment and Plan (1) Amenorrhea: Status: Acute Comment: HCG x 2 (2) Ectopic : Status: Acute Comment: 2nd one(first was in October and MTX given). Rpt: Plan After discussing the patient's diagnosis and treatment plan options, patient wishes to proceed with surgical management. I have discussed with the patient the risks, benefits, and alternatives of the procedure which include but are not limited to risks of anesthesia, bleeding, infection, possible damage to bowel, bladder, or surrounding vasculature which could lead to additional surgery to evaluate any complications. Patient agrees to procedure and wishes to proceed. ACOG/uptodate references given for additional information regarding procedure.
[2023-07-12] MEDS: Cefotetan 2 GM in 0.9% NS 100 ML IV (12:36)
[2023-07-12] MEDS: Methylene Blue 1% 100 MG/10 ML VIAL (13:06)
[2023-07-12] MEDS: Bupivacaine 0.25% 30 ML Vial (13:06)
--- NOTE | 2023-07-12 13:56 | PCM.OPRPT ---
Problems Associated Problem List Diagnoses (1) Amenorrhea: (2) History of ectopic : Report of Operation Date of Procedure: 07/12/23 Pre-Operative Diagnosis: history of recurrent ectopic , desires fertility, amenorrhea Post-Operative Diagnosis: history of recurrent ectopic , desires fertility, amenorrhea Surgery/Procedure Performed:: diagnostic laparoscopy, chromopertubation, diagnostic hysteroscopy, dilation and curettage Description of Surgical Findings:: normal bilateral fallopian tubes and ovaries, patent right fallopian tube, non-patent left fallopian tube. Possible polyp structure in the uterus. Tubal ostia absent on left side of uterus Surgeon: Priti Fregoso superintendent drilling: Shahla Spangler superintendent drilling: Ritika Hernandez Type of Anesthesia: General Anesthesiologist: Júnior Shahid Specimen's removed: endometrial curetting Estimated Blood Loss (mL): 20cc Description of Procedure: Patient was taken in the operating room and was placed under general anesthesia was prepped and draped in normal sterile fashion in the dorsal lithotomy position. Bladder was drained of clear urine and SCDs were on preoperatively. A single toothed tenaculum was placed on the anterior lip the cervix and a uterine manipulator was inserted. Attention was then paid to the abdominal portion of the procedure and the umbilicus was elevated with towel clamps and injected with Marcaine and after a 5 mm incision was made and a 5 mm laparoscope was inserted into the abdomen under direct visualization. There was some difficulty in visualizing entry so a veres needle was used to obtain pneumoperitoneum. The 5mm trocar was then inserted with direct visualization using the laparoscope. The Abdomen was insufflated with CO2 gas and the patient was placed in trundelenburg position. A left lower quadrant 5 mm port was placed under direct visualization. Methylene blue was injected through the uterine manipulator and the right fallopian tube trained right away. The manipulator was pulled back to ensure that the tube on the left was not being blocked by pressure from the device and this still did not shows spillage. Both fallopian tubes and ovaries appeared normal without cysts, masses, lesions, or edema. There were no signs of endometriosis and the bowel and liver appeared normal. The uterus had a somewhat irregular appearance. the right cornual area was larger than the left. The decision was made to perform a diagnostic hysteroscopy. All laparoscopic instruments were removed and the port sites were closed with a 4-0 monocryl suture. The cervix was progressively dilated to allow passage of a 5 mm hysteroscope. The lining was fully visualized and noted to have some polyp like structures obscuring the view. Uterine sounded to 11 cm. Al curettage was performed , and all specimens were sent to pathology. After the curettage, the uterus was distended fully with saline and the right ostia was noted to be visible, but the left was not. All instruments were removed from the vagina and excellent hemostasis was noted. Patient was awoken and taken to recovery in stable condition. Complications none Admit VTE Documentation VTE Present on Admission: No VTE Mechan Device Prophylaxis: SCD's VTE Pharm Prophylaxis ordered?: No Multi Select Codes Urinary/Genital Urinary/Genital CPT Codes: 33259 Hysteroscopy,EMC, Polypectomy and 08365 Laparoscopic fulguration tubes
[2023-07-12 13:58] VITALS: BP 132/74; BP 139/70; PULSE 78; RESP 16; TEMP 36.6; O2SAT 98
[2023-07-12 14:00] VITALS: BP 132/72; BP 139/70; PULSE 73; RESP 16; O2SAT 99
[2023-07-12 14:15] VITALS: BP 136/74; BP 139/70; PULSE 74; RESP 16; O2SAT 99
[2023-07-12 14:21] VITALS: BP 139/70; BP 140/76; PULSE 67; RESP 16; TEMP 36.4; O2SAT 100
[2023-07-12] MEDS: Ketorolac 30 MG/ML Syringe IV (14:21)
[2023-07-12 15:58] VITALS: BP 133/67; BP 139/70; PULSE 75; RESP 16; TEMP 36.1; O2SAT 97
== END 2023-07-12 16:03 | disposition home or self-care (01) ==
LOC: SDC 10:31 → AC 10:32
PROVIDERS: PCP Nurse Practitioner Primary Care; Referring Provider Obstetrics & Gynecology; Visit Provider Obstetrics & Gynecology
PROC: (CPT 49320; principal; 2023-07-12 12:05)
DX: N91.2 Amenorrhea, unspecified (principal); Z87.59 Personal history of other complications of pregnancy, childbirth and the puerperium
CPT/HCPCS: 58558; 00952; 36415; 81025; 85027; 86850; 86900; 86901; 88305; J7120; J2405

== ENCOUNTER → 2023-11-09 | Outpatient (CLI) | payer SELFPAY ==
[2023-11-09 10:20] LABS: hCG Titer Quant., Serum 20 mIU/mL (1-3)
== END | disposition home or self-care (01) ==
LOC: LAB 08:30
PROVIDERS: PCP Nurse Practitioner Primary Care; Referring Provider Nurse Practitioner Women's Health; Visit Provider Nurse Practitioner Women's Health
DX: N91.2 Amenorrhea, unspecified (principal)
CPT/HCPCS: 36415; 84702

== ENCOUNTER → 2023-11-11 | Outpatient (CLI) | payer SELFPAY ==
[2023-11-11 09:30] LABS: hCG Titer Quant., Serum 12 mIU/mL (1-3)
== END | disposition home or self-care (01) ==
LOC: LAB 08:26
PROVIDERS: PCP Nurse Practitioner Primary Care; Referring Provider Obstetrics & Gynecology; Visit Provider Obstetrics & Gynecology
DX: N91.2 Amenorrhea, unspecified (principal)
CPT/HCPCS: 36415; 84702

== ENCOUNTER → 2023-11-16 | Outpatient (CLI) | payer SELFPAY ==
[2023-11-16 10:11] LABS: hCG Titer Quant., Serum < 1 mIU/mL (1-3)
== END | disposition home or self-care (01) ==
PROVIDERS: PCP Nurse Practitioner Primary Care; Visit Provider Obstetrics & Gynecology
DX: O09.90 Supervision of high risk pregnancy, unspecified, unspecified trimester (principal); Z3A.00 Weeks of gestation of pregnancy not specified
CPT/HCPCS: 36415; 84702

== ENCOUNTER → 2024-01-10 | Outpatient (CLI) | payer SELFPAY ==
[2024-01-10 09:55] LABS: hCG Titer Quant., Serum 146 mIU/mL (1-3)
== END | disposition home or self-care (01) ==
LOC: LAB 08:33
PROVIDERS: PCP Nurse Practitioner Primary Care; Referring Provider Nurse Practitioner Women's Health; Visit Provider Nurse Practitioner Women's Health
DX: N91.2 Amenorrhea, unspecified (principal)
CPT/HCPCS: 36415; 84702

== ENCOUNTER → 2024-01-12 | Outpatient (CLI) | payer SELFPAY ==
[2024-01-12 09:43] LABS: hCG Titer Quant., Serum 348 mIU/mL (1-3)
== END | disposition home or self-care (01) ==
PROVIDERS: PCP Nurse Practitioner Primary Care; Visit Provider Obstetrics & Gynecology
DX: N91.2 Amenorrhea, unspecified (principal)
CPT/HCPCS: 36415; 84702

== ENCOUNTER → 2024-01-14 | Outpatient (CLI) | payer SELFPAY ==
[2024-01-14 09:38] LABS: hCG Titer Quant., Serum 879 mIU/mL (1-3)
== END | disposition home or self-care (01) ==
LOC: LAB 08:13
PROVIDERS: PCP Nurse Practitioner Primary Care; Referring Provider Obstetrics & Gynecology; Visit Provider Obstetrics & Gynecology
DX: N91.2 Amenorrhea, unspecified (principal)
CPT/HCPCS: 36415; 84702

== ENCOUNTER → 2024-01-19 | Outpatient (CLI) | payer SELFPAY ==
--- NOTE | 2024-01-19 10:47 | US_ITS ---
STUDY: FIRST TRIMESTER OBSTETRICAL ULTRASOUND REASON FOR EXAM: Female, 39 years old viability LMP: December 14, 2023. TECHNIQUE: Transvaginal TECHNICAL QUALITY: Adequate. PRIOR ULTRASOUND: None. FINDINGS: There is visualization of a single gestational sac in a normal intrauterine position. The mean sac diameter (MSD) measures 9 mm, indicating an estimated gestational age (EGA) of 5 weeks, 5 days. The gestational sac shape is within normal limits. There is a visualized yolk sac. The yolk sac measures 2 mm. The placenta is non-visualized. There is no demonstrated embryo ( pole). The estimated gestation age (EGA) by LMP is 5 weeks, 1 days. The estimated date of delivery (NATHALY) by LMP is September 19, 2024. The estimated gestation age (EGA) by US is 5 weeks, 5 days. The estimated date of delivery (NATHALY) by US is September 15, 2024. The uterus measures 7.6 x 4.9 cm x 4.2 cm. There is no demonstrated uterine fibroid. The cervix is closed. The right ovary measures 2.9 cm x 2.5 cm x 2.9 cm. There is a 1.7 cm x 1.6 x 1.2 cm complex cyst in the right adnexa most likely representing resolving corpus luteum cyst. There is no visualized right adnexal mass or complex lesion. The left ovary measures 3 cm x 1.7 cm x 1.7 cm. There is no left ovarian cyst. There is no visualized left adnexal mass or complex lesion. There is no fluid in the cul de sac. US/Transvaginal w/Preg US IMPRESSION: Single intrauterine gestation with a mean gestational age of 5 weeks and 5 days. Electronically Signed: Ken You MD at 12:23 EDT ,
== END | disposition home or self-care (01) ==
LOC: US 10:47
PROVIDERS: PCP Nurse Practitioner Primary Care; Referring Provider Obstetrics & Gynecology; Visit Provider Obstetrics & Gynecology
DX: O26.851 Spotting complicating pregnancy, first trimester (principal); N96 Recurrent pregnancy loss; Z87.59 Personal history of other complications of pregnancy, childbirth and the puerperium; Z3A.00 Weeks of gestation of pregnancy not specified; O99.891 Other specified diseases and conditions complicating pregnancy
CPT/HCPCS: 76817

== ENCOUNTER → 2024-01-27 | Outpatient (CLI) | payer SELFPAY ==
--- NOTE | 2024-01-27 11:25 | US_ITS ---
STUDY: FIRST TRIMESTER OBSTETRICAL ULTRASOUND REASON FOR EXAM: Female, 39 years old spotting in early LMP: December 14, 2023. TECHNIQUE: Transvaginal TECHNICAL QUALITY: Adequate. PRIOR ULTRASOUND: Comparison is made with prior study dated January 19, 2024. FINDINGS: There is visualization of a single gestational sac in a normal intrauterine position. The mean sac diameter (MSD) measures 2.26 cm, indicating an estimated gestational age (EGA) of 7 weeks, 2 days. The gestational sac shape is within normal limits. There is a visualized yolk sac. The yolk sac measures 2.8 mm. The placenta is non-visualized. There is visualization of a live embryo. The crown-rump length (CRL) measures 2.7 mm, indicating an estimated gestational age (EGA) of 6 weeks, 1 days. There is demonstrated cardiac activity with a heart rate of 124 bpm. The estimated gestation age (EGA) by LMP is 6 weeks, 2 days. The estimated date of delivery (NATHALY) by LMP is September 19, 2024. The estimated gestation age (EGA) by US is 6 weeks, 5 days. The estimated date of delivery (NATHALY) by US is September 16, 2024. The uterus measures 9 cm x 5.7 cm x 4.8 cm. Findings suggestive of a small subchorionic hemorrhage adjacent to the gestational sac. There is no demonstrated uterine fibroid. The cervix is closed. The right ovary measures 3.3 cm x 2.5 cm x 3.2 cm. There is a corpus luteum cyst measuring 2 cm x 1.6 cm x 1.2 cm. There is no visualized right adnexal mass or complex lesion. The left ovary measures 3.7 cm x 2.5 cm x 2.5 cm. There is no left ovarian cyst. There is no visualized left adnexal mass or complex lesion. There is no fluid in the cul de sac. US/Transvaginal w/Preg US IMPRESSION: Intrauterine gestation of 6 weeks and 5 days. Right corpus luteum cyst. Findings suggestive of a small subchorionic bleed. Electronically Signed: Ken You MD at 14:40 EDT ,
== END | disposition home or self-care (01) ==
LOC: US 11:23
PROVIDERS: PCP Nurse Practitioner Primary Care; Referring Provider Obstetrics & Gynecology; Visit Provider Obstetrics & Gynecology
DX: O26.20 Pregnancy care for patient with recurrent pregnancy loss, unspecified trimester (principal); O26.851 Spotting complicating pregnancy, first trimester; Z87.59 Personal history of other complications of pregnancy, childbirth and the puerperium; Z3A.00 Weeks of gestation of pregnancy not specified
CPT/HCPCS: 76817

== ENCOUNTER → 2024-02-06 | Outpatient (CLI) | payer SELFPAY ==
[2024-02-06 16:34] LABS: Absolute Neutrophil Count 9.1 X10^3/uL (2.0-7.7); Basophil# 0.04 X10^3/uL; Basophil% 0.4 % (0-1); Eosinophil# 0.06 X10^3/uL; Eosinophils% 0.5 % (0-5); Hematocrit 42.6 % (37-47); Hemoglobin 13.8 g/dL (12.0-15.0); Lymphocyte % 12.3 % (19-41); Mean Corp Hgb Conc 32.4 g/dL (32-36); Mean Corpuscular Hgb 30.1 pg (27.0-32.0); Mean Corpuscular Volume 92.8 fL (81-99); Mean Platelet Vol. 10.2 fl (6.2-12.0); Monocyte# 0.74 X10^3/uL; Monocyte% 6.5 % (0-10); NRBC Flagged by Analyzer 0 % (0-5); Neutrophil # 9.07 X10^3/uL (2.7-7.7); Neutrophil % 79.5 % (47-70); Platelet Count 259 K/mm3 (150-450); RBC Distribution Width CV 13.8 % (11.6-14.6); RBC Distribution Width SD 46.9 fl (35.1-43.9); Red Blood Count 4.59 M/mm3 (4.2-5.4); White Blood Count 11.4 K/mm3 (4.4-11.0)
[2024-02-06 16:39] LABS: Hemoglobin A1c 4.9 % (3.8-5.6)
[2024-02-06 17:49] LABS: HIV - WCH Non-Reactive (Nonreactive); Hepatitis B Surface Antigen Non-Reactive (Nonreactive); Hepatitis C Antibody Non-Reactive (Nonreactive); Rubella IgG Reactive (Nonreactive); Syphilis Antibodies Non-reactive
[2024-02-10 11:09] LABS: HPV APTIMA, High Risk Negative (Negative)
[2024-02-10 18:11] LABS: Chlamydia By Nucleic Acid AMP Negative; Gonococcus By Nucleic Acid AMP Negative
== END | disposition home or self-care (01) ==
PROVIDERS: PCP Nurse Practitioner Primary Care; Referring Provider Obstetrics & Gynecology; Visit Provider Obstetrics & Gynecology
DX: O99.210 Obesity complicating pregnancy, unspecified trimester (principal); Z3A.00 Weeks of gestation of pregnancy not specified
CPT/HCPCS: 36415; 83036; 85025; 86703; 86762; 86780; 86803; 86850; 86900; 86901; 87086; 87088; 87340; 87491; 87591; 87624; 88175; G0145

== ENCOUNTER → 2024-06-28 | Outpatient (CLI) | payer SELFPAY ==
[2024-06-28 09:07] LABS: Absolute Lymphocyte Count 1.25 X10^3/uL (0.83-4.51); Basophil# 0.05 X10^3/uL; Basophil% 0.4 % (0-1); Eosinophil# 0.12 X10^3/uL; Hematocrit 36.6 % (37-47); Hemoglobin 11.9 g/dL (12.0-15.0); Lymphocyte # 1.25 X10^3/ul (0.83-4.51); Lymphocyte % 10.8 % (19-41); Mean Corp Hgb Conc 32.5 g/dL (32-36); Mean Corpuscular Hgb 30.4 pg (27.0-32.0); Mean Corpuscular Volume 93.4 fL (81-99); Mean Platelet Vol. 9.9 fl (6.2-12.0); Monocyte# 0.63 X10^3/uL; Monocyte% 5.4 % (0-10); NRBC Flagged by Analyzer 0 % (0-5); Neutrophil # 9.04 X10^3/uL (2.7-7.7); Neutrophil % 77.9 % (47-70); Platelet Count 236 K/mm3 (150-450); RBC Distribution Width CV 15.6 % (11.6-14.6); RBC Distribution Width SD 53.2 fl (35.1-43.9); Red Blood Count 3.92 M/mm3 (4.2-5.4); White Blood Count 11.6 K/mm3 (4.4-11.0)
[2024-06-28 09:25] LABS: Glucose Challenge Gest 1H 50g 141 mg/dL (70-140)
[2024-06-28 09:57] LABS: HIV - WCH Non-Reactive (Nonreactive); Syphilis Antibodies Non-reactive
== END | disposition home or self-care (01) ==
PROVIDERS: PCP Nurse Practitioner Primary Care; Referring Provider Obstetrics & Gynecology; Visit Provider Obstetrics & Gynecology
DX: O09.92 Supervision of high risk pregnancy, unspecified, second trimester (principal); Z13.1 Encounter for screening for diabetes mellitus
CPT/HCPCS: 36415; 82950; 85025; 86703; 86780

== ENCOUNTER → 2024-08-22 | Outpatient (CLI) | payer SELFPAY | END | disposition home or self-care (01) | PROVIDERS: PCP Nurse Practitioner Primary Care; Referring Provider Obstetrics & Gynecology; Visit Provider Obstetrics & Gynecology | DX: O09.92 Supervision of high risk pregnancy, unspecified, second trimester (principal); Z3A.00 Weeks of gestation of pregnancy not specified | CPT/HCPCS: 87081 ==

== ENCOUNTER → 2024-08-23 | Outpatient (CLI) | payer SELFPAY ==
--- NOTE | 2024-08-23 17:47 | US_ITS ---
EXAM: US , LIMITED CLINICAL INDICATION: growth -- 36 Weeks TECHNIQUE: Real-time limited ultrasound of the maternal uterus with image documentation. COMPARISON: No relevant prior studies available. FINDINGS: FETUS: There is an intrauterine gestation. GESTATIONAL AGE: A gestational age 36 weeks 1 day. NATHALY: NATHALY 09/19/2024. EFW: Estimated weight 3248 g, 86th percentile. BPD: Biparietal diameter 8.9 cm age 36 weeks 1 day, 59th percentile. HC: Head circumference 32.3 cm age 36 weeks 4 days, 28th percentile. AC: Abdominal circumference 34.5 cm age 38 weeks 3 days, 98th percentile. FL: Femur length 7.1 cm age 36 weeks 1 day, 47th percentile. POSITION: The fetus is in cephalic presentation. HEART RATE: heart rate 153 bpm. PLACENTA: Placenta is anterior. AMNIOTIC FLUID: JOAQUIN 17.6 cm. US/OB Limited With Biometrics IMPRESSION: Intrauterine gestation with an average ultrasound age of 36 weeks 5 days and ultrasound estimated due date of 09/15/2024. heart rate is 153 bpm. Electronically Signed: Tremaine Corrales MD at 23:55 EST ,
== END | disposition home or self-care (01) ==
PROVIDERS: PCP Nurse Practitioner Primary Care; Referring Provider Nurse Practitioner Primary Care; Visit Provider Nurse Practitioner Women's Health
DX: O09.523 Supervision of elderly multigravida, third trimester (principal); Z3A.36 36 weeks gestation of pregnancy
CPT/HCPCS: 76816

== ENCOUNTER 2024-09-13 19:20 | Inpatient (IN) | payer SELFPAY ==
[2024-09-13 19:09] VITALS: BMI 35.4
[2024-09-13 19:35] VITALS: BP 140/82; PULSE 71; O2SAT 80
[2024-09-13 19:36] VITALS: RESP 16; TEMP 36.7
[2024-09-13 19:50] LABS: Absolute Lymphocyte Count 1.72 X10^3/uL (0.83-4.51); Absolute Neutrophil Count 8.1 X10^3/uL (2.0-7.7); Basophil# 0.08 X10^3/uL; Basophil% 0.7 % (0-1); Eosinophil# 0.15 X10^3/uL; Eosinophils% 1.3 % (0-5); Lymphocyte # 1.72 X10^3/ul (0.83-4.51); Lymphocyte % 15.1 % (19-41); Mean Corp Hgb Conc 33.3 g/dL (32-36); Mean Corpuscular Hgb 29.3 pg (27.0-32.0); Mean Platelet Vol. 10.5 fl (6.2-12.0); Monocyte% 9.6 % (0-10); NRBC Flagged by Analyzer 0 % (0-5); Neutrophil # 8.13 X10^3/uL (2.7-7.7); Neutrophil % 71.4 % (47-70); Platelet Count 214 K/mm3 (150-450); RBC Distribution Width CV 15.7 % (11.6-14.6); RBC Distribution Width SD 50.2 fl (35.1-43.9); Red Blood Count 4.43 M/mm3 (4.2-5.4); White Blood Count 11.4 K/mm3 (4.4-11.0)
[2024-09-13 20:16] VITALS: BP 136/80; PULSE 72
[2024-09-13] MEDS: miSOPROStol 25 MCG TABLET VAGINAL (20:30)
[2024-09-13 21:00] LABS: Syphilis Antibodies Non-reactive
[2024-09-13 21:59] VITALS: BP 114/58; PULSE 67; RESP 16; TEMP 36.6
[2024-09-13 23:15] VITALS: PULSE 58; O2SAT 98
[2024-09-13 23:16] VITALS: BP 127/73; PULSE 65; RESP 16; TEMP 36.6
[2024-09-14] VITALS (35 sets, daily range): BP systolic 107–154; BP diastolic 57–90; PULSE 70–113; RESP 16–18; TEMP 36.2–37.1; O2SAT 97–100
[2024-09-14] MEDS: miSOPROStol 25 MCG TABLET VAGINAL ×2 (00:30→04:33)
[2024-09-14] MEDS: 0.9% Saline Lock 10 ML Syringe IV ×2 (06:11→09:21)
[2024-09-14] MEDS: 0.9% Normal Saline Single 100 ML IV.SOLN. INTRA-UTER (08:03)
--- NOTE | 2024-09-14 08:11 | HP.PCM.OB_ITS ---
HPI - General General Date of Admission: 09/13/24 HPI Narrative ANGELA HOOKER, is a 39 F who presents at 39 weeks for IOL for AMA. Maternal Data Information NATHALY Calculator Estimated Delivery Date Method Current WG Current Estimate 09/19/24 LMP (Certain) 39w 2d Other Estimates 09/17/24 Ultrasound #1 39w 4d PFSH PFSH Medical History Ectopic Loose, teeth Back pain Migraine headache Non-smoker Leg cramps Spotting Amenorrhea Miscarriage PCOS (polycystic ovarian syndrome) Home Medications ?Medication ?Instructions ?Recorded ?Last Taken ?Type aspirin 81 mg tablet,delayed 81 mg PO DAILY 01/31/24 09/13/24 History release inositol 500 mg tablet 2,200 mg PO DAILY 01/31/24 09/12/24 History multivitamin no.47-iron fum 27 cap PO 09/13/24 History mg-folate no.1 1 mg-dha 300 mg capsule (PNV-DHA) progesterone micronized 200 mg 200 mg vaginal QHS 30 d ays #30 caps 01/31/24 Unknown Rx capsule (Prometrium) blood sugar diagnostic (Blood #120 ea 06/28/24 Unknown Rx Glucose Test strips) blood-glucose meter #1 ea 06/28/24 Unknown Rx lancets #200 ea 06/28/24 Unknown Rx Allergy/AdvReac Type Severity Reaction Status Date / Time No Known Allergies Allergy Verified 09/13/24 19:42 Family History Mother Heart disease Surgical History Status post laparoscopy (~07/12/23) Hx of wisdom tooth extraction Social History adopted: No household members: spouse and children number of children: 1 current occupational status: employed current occupation: Customer Service current occupational exposures/hazards: No pets and animals: Yes (Avoid litterbox) pets and animals: cat(s) history of recent travel: Yes ([place] in November) out of state: Yes out of country: No sexually active: Yes Smoking Status: Never smoker alcohol intake: never substance use type: does not use well-balanced diet: daily or most days caffeine: Yes Type: coffee Number of servings: 1 eating out: 1-3 times/week during the past year weight has: remained stable what type of physical activity do you participate in: none mendy/taoist: Alevism seatbelt use: always do you feel safe at home: Yes 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 Date Name GA/Weeks Outcome Route Bth Weight Gen Labor Lgth Anesthesia Del Locatn Provider FOB 04/23/09 ADOPTED- [facility] Delivery Date: 04/23/09 Last Updated by: Yoly Rojas ADOPTED Visit Details Expected Delivery Route/Plan Labor Preferences- CB/BF classes: yes labor support person: [place] labor intervention preferences: [] pain management options preferred: limited intervention cut cord/dad catch: yes : yes PP control planned: discussed discussed possible routes of delivery and associated risks: [] special requests: [] Plans Covid status: [] Flu vaccine: declines Tdap vaccine: declines Rhogam: NA LARC form signed: yes Problem list reviewed and updated with the most current plan of care details and appropriate orders placed. Relevant counseling for the gestational age provided. Continue routine care and follow up unless otherwise noted in visit notes/problem list details OB Flowsheet Initial Weight: Not Recorded Date -?-?-?-?-?-?-?-?-?-?-?-?- EGA Weight BP Urine Prot -?-?-?-?-?-?-?-?-?-?-?-?- Glucose FHR FuHt Pres Dilation -?-?-?-?-?-?-?-?-?-?-?-?- Effaced St Visit Note 02/06/24 -?-?-?-?-?-?-?-?-?-?-?-?- 7w 5d 182 lb 2 oz 138/88 -?-?-?-?-?-?-?-?-?-?-?-?- 175 -?-?-?--?-?-?-?-?-?-?-?-?- JV- CRL consiste nt with LMP. She also had an earlier us. Declines NIPT. wants to come back in 2 weeks for heart beat check due to multiple miscarriages. Pt is taking progesterone. 03/08/24 -?-?-?-?-?-?-?-?-?-?-?-?- 12w 1d 190 lb 4 oz 126/84 Nega tive -?-?-?-?-?-?-?-?-?-?-?-?- Negative 173 -?-?-?-?-?-?-?-?-?-?-?-?- MH-Br US to conf irm live IUP. Some nausea. Had light spotting after IC 1 week ago and none since. 04/06/24 -?-?-?-?-?-?-?-?-?-?-?-?- 16w 2d 193 lb 8 oz 124/86 Nega tive -?-?-?-?-?-?-?-?-?-?-?-?- Negative 145 -?-?-?-?-?-?-?-?-?-?-?-?- LC- no vb/crampi ng. MFM for us order placed. declines afp. 05/02/24 -?-?-?-?-?-?-?-?-?-?-?-?- 20w 0d 201 lb 135/78 Negative -?-?-?-?-?-?-?-?-?-?-?-?- Negative 140 -?-?-?-?-?-?-?-?-?-?-?-?- SM- no vb lof go od fm no regualr ctx 05/30/24 -?-?-?-?-?-?-?-?-?-?-?-?- 24w 0d 203 lb 139/84 Negative -?-?-?-?-?-?-?-?-?-?-?-?- Negative 145 -?-?-?-?-?-?-?-?-?-?-?-?- JV- no lof, vagi nal bleeding, or dec fm. pt plans to just start glucose checking if her 1 hr is abnormal and not do 3 hr. She declines tdap, flu, and rsv. 06/28/24 -?-?-?-?-?-?-?-?-?-?-?-?- 28w 1d 210 lb 124/78 Negative -?-?-?-?-?-?-?-?-?-?-?-?- Negative 152 28 -?-?-?-?-?-?-?-?-?-?-?-?- MH-No VB, LOF. G ood Fm. Larc. 28 wk labs pending. Declines tdap 07/09/24 -?-?-?-?-?-?-?-?-?-?-?-?- 29w 5d 207 lb 134/82 Trace -?-?-?-?-?-?-?-?-?-?-?-?- Negative 145 30 -?-?-?-?-?-?-?-?-?-?-?-?- KW- no vb/lof/ct x. good fm. Good BS control, will continue to monitor until next visit. 07/25/24 -?-?-?-?-?-?-?-?-?-?-?-?- 32w 0d 210 lb 6 oz 129/80 Nega tive -?-?-?-?-?-?-?-?-?-?-?-?- Negative 147 32 -?-?-?-?-?-?-?-?-?-?-?-?- JV- no lof, vagi nal bleeding, or dec fm. declines tdap. glucose log a little elevated. continue testing throughout . growth scan at 36 weeks 08/06/24 -?-?-?-?-?-?-?-?-?-?-?-?- 33w 5d 216 lb 135/86 Negative -?-?-?-?-?-?-?-?-?-?-?-?- Negative 143 33 -?-?-?-?-?-?-?-?-?-?-?-?- KW- no vb/lof/ct x. good fm. BS reviewed and doing well. discussed NSTs and GBS next visit. 08/22/24 -?-?-?-?-?-?-?-?-?-?-?-?- 36w 0d 215 lb 130/86 Negative -?-?-?-?-?-?-?-?-?-?-?-?- Negative 140 36 -?--?-?-?-?-?-?-?-?-?-?-?- SM- no vb lof go od fm nro egular ctx gbs collected 08/29/24 -?-?-?-?-?-?-?-?-?-?-?-?- 37w 0d 215 lb 6 oz 139/81 Trac e -?-?-?-?-?-?-?-?-?--?-?-?- Negative 150 38 -?-?-?-?-?-?-?-?-?-?-?-?- JV- growth scan shows ab circ 98th%. fasting glucose and 2 hr pp are all within normal range. 09/05/24 -?-?-?-?-?-?-?-?-?-?-?-?- 38w 0d 217 lb 136/90 Negative -?-?-?-?-?-?-?-?-?-?-?-?- Negative 155 39 -?-?-?-?-?-?-?-?-?-?-?-?- KW- IOL for next week. NST reactive. no vb/lof. no concerns today 09/12/24 -?-?-?-?-?-?-?-?-?-?-?-?- 39w 0d 217 lb 6 oz 134/81 Nega tive -?-?-?-?-?-?-?-?-?-?-?-?- Negative 140 40 Cephalic 0 .5 -?-?-?-?-?-?-?-?-?-?-?-?- 20 -2 MH-reactiv e NST. NO VB, LOF or CTX. IOL tomorrow night NST FHR Rate Baby A Baseline: 140 Variability:: Moderate Accelerations:: 15 x 15 Decelerations:: None NST Reactive:: Yes FHR Category:: Category I Uterine Activity:: q3-4 Vital Signs Vital Signs Vital Signs: 09/13/24 19:35 09/13/24 19:35 09/13/24 19:35 Temperature Temperature Source Pulse Rate 71 Respiratory Rate Blood Pressure 140/82 H BP Systolic 140 BP Diastolic 82 Pulse Ox 80 09/13/24 19:36 09/13/24 19:36 09/13/24 19:36 Temperature 98.0 F Temperature Source Temporal Pulse Rate Respiratory Rate 16 Blood Pressure BP Systolic BP Diastolic Pulse Ox 09/13/24 20:16 09/13/24 20:16 09/13/24 21:59 Temperature Temperature Source Temporal Pulse Rate 72 Respiratory Rate Blood Pressure 136/80 H BP Systolic 136 BP Diastolic 80 Pulse Ox 09/13/24 21:59 09/13/24 21:59 09/13/24 21:59 Temperature Temperature Source Pulse Rate 67 Respiratory Rate 16 Blood Pressure 114/58 L BP Systolic 114 BP Diastolic 58 Pulse Ox 09/13/24 21:59 09/13/24 23:15 09/13/24 23:15 Temperature 97.8 F Temperature Source Pulse Rate 58 L Respiratory Rate Blood Pressure BP Systolic BP Diastolic Pulse Ox 98 09/13/24 23:16 09/13/24 23:16 09/13/24 23:16 Temperature Temperature Source Temporal Pulse Rate 65 Respiratory Rate Blood Pressure 127/73 H BP Systolic 127 BP Diastolic 73 Pulse Ox 09/13/24 23:16 09/13/24 23:16 09/14/24 01:33 Temperature 97.8 F Temperature Source Pulse Rate Respiratory Rate 16 Blood Pressure 107/58 L BP Systolic 107 BP Diastolic 58 Pulse Ox 09/14/24 01:33 09/14/24 01:33 09/14/24 01:33 Temperature Temperature Source Temporal Pulse Rate 70 Respiratory Rate 16 Blood Pressure BP Systolic BP Diastolic Pulse Ox 09/14/24 01:33 09/14/24 03:06 09/14/24 03:06 Temperature 97.6 F L Temperature Source Pulse Rate 81 Respiratory Rate Blood Pressure 131/74 H BP Systolic 131 BP Diastolic 74 Pulse Ox 09/14/24 03:06 09/14/24 03:06 09/14/24 03:06 Temperature 98.6 F Temperature Source Temporal Pulse Rate Respiratory Rate 16 Blood Pressure BP Systolic BP Diastolic Pulse Ox 09/14/24 04:40 09/14/24 04:40 09/14/24 04:40 Temperature 97.8 F Temperature Source Temporal Pulse Rate Respiratory Rate 16 Blood Pressure BP Systolic BP Diastolic Pulse Ox 09/14/24 04:41 09/14/24 04:41 09/14/24 06:01 Temperature Temperature Source Temporal Pulse Rate 76 Respiratory Rate Blood Pressure 112/75 BP Systolic 112 BP Diastolic 75 Pulse Ox 09/14/24 06:01 09/14/24 06:01 09/14/24 06:02 Temperature 98.0 F Temperature Source Pulse Rate Respiratory Rate 16 Blood Pressure 118/68 BP Systolic 118 BP Diastolic 68 Pulse Ox 09/14/24 06:02 09/14/24 07:25 09/14/24 07:25 Temperature Temperature Source Pulse Rate 75 80 Respiratory Rate Blood Pressure 135/88 H BP Systolic 135 BP Diastolic 88 Pulse Ox 09/14/24 07:25 09/14/24 07:25 09/14/24 07:25 Temperature 97.7 F L Temperature Source Temporal Pulse Rate Respiratory Rate 17 Blood Pressure BP Systolic BP Diastolic Pulse Ox Weight Weight: 206 lb 6.4 oz Body Mass Index (BMI) 35.4 Physical Exam Const alert, oriented x3 and no apparent distress General Appearance: cooperative, comfortable and well kempt Orientation / Consciousness: awake and oriented to person Exam Limitations: no limitations HEENT normocephalic Neck full ROM Chest inspection of chest normal Resp normal respiratory effort, normal air movement and no retractions Effort and Inspection: able to speak in complete sentences and symmetric chest movement Cardio regular rate Peripheral Pulses: pulses 2+ throughout GI normal to inspection, nondistended, normoactive bowel sounds Inspection: gravid no CVA tenderness and appearance of the vagina normal External Female Exam: normal appearance of the urethra; Negative for external lesion OB / External & Speculum: external exam normal Manual OB Exam: estimated gestational size appropriate and presentation cephalic Uterus Palpation: Negative for uterus tender Extremity normal to inspection Skin no rashes or lesions noted Neuro deep tendon reflexes 2+ bilaterally and gait normal Motor Exam: strength 5/5 throughout and clonus absent Psych Activity / Motor Behavior: appropriate eye contact Speech: normal speech Labs Labs Labs: Blood Type O POSITIVE Antibody Screen NEGATIVE Hct 39.0 % (37-47) Hgb 13.0 g/dL (12.0-15.0) Obstetrics Ultrasound Syphilis Total Ab Non-reactive Rubella IgG Antibody Reactive (Nonreactive) Hep Bs Antigen Non-Reactive (Nonreactive) Hepatitis C Antibody Non-Reactive (Nonreactive) Chlamydia DNA ([place]) Negative N.gonorrhoeae DNA ([place]) Negative HIV 1&2 Antibody Non-Reactive (Nonreactive) Glucose 1 Hr 50 gm 141 mg/dL (70-140) H Assessment & Plan (1) Encounter for induction of labor: (2) Abnormal glucose level: COMMENT: failed 1 HR GTC, declines 3 HR GTT, Tet BS fasting and 2 hr post meals (3) AMA (advanced maternal age) multigravida 35+: QUALIFIERS: Trimester: second trimester Qualified Code(s): O09.522 - Supervision of elderly multigravida, second trimester COMMENT: 36wk: wkly NST and growth US IOL 09/13/23 @ 7pm cytotec (4) Obesity (BMI 30.0-34.9): COMMENT: HgbA1c ordered with NOB labs; 36w EFW 89%, AC 98% (5) Supervision of high-risk : QUALIFIERS: Trimester: third trimester Qualified Code(s): O09.93 - Supervision of high risk , unspecified, third trimester COMMENT: [id number], NATHALY 09/19/24, Adopted son [place], [place] (6) : QUALIFIERS: Weeks of gestation: 39 weeks Qualified Code(s): Z3A.39 - 39 weeks gestation of COMMENT: GBS Negative, nl anatomy, declines genetic & carrier testing PLAN: Plan Patient presents IOL, plan management for with cytotec/covarrubias bulb/pitocin/AROM. Pain management: plans epidural. GBS negative. Management of any complications: none I have reviewed the [facility] and made any clinically relevant updates. Dr. Mccray updated on exam and poc. co-management for iol.
[2024-09-14] MEDS: Lactated Ringers 1,000 ML 50 ML IV (09:18)
[2024-09-14] MEDS: Oxytocin 15 Units/NS 250ml 15 UNITS/250 ML IV.SOLN 2 UNITS IV (09:20)
[2024-09-14] MEDS: Lactated Ringers 1,000 ML 999 ML IV ×3 (10:48→22:20)
[2024-09-14] MEDS: fentaNYL-bupivacaine (epidural) 100 ML BAG EPIDURAL ×3 (11:35→20:44)
--- NOTE | 2024-09-14 17:37 | PCM.PN.BLA ---
Progress Note cat II tracing pit off now /1 inernal placed positive scalp stim exp management
[2024-09-15] VITALS (33 sets, daily range): BP systolic 128–152; BP diastolic 60–87; PULSE 85–132; RESP 16–18; TEMP 35.7–37.1; O2SAT 96–100
[2024-09-15] MEDS: fentaNYL-bupivacaine (epidural) 100 ML BAG EPIDURAL ×2 (01:16→06:15)
[2024-09-15] MEDS: Lactated Ringers 1,000 ML 200 ML IV (02:01)
[2024-09-15] MEDS: 0.9% Saline Lock 10 ML Syringe IV (03:10)
[2024-09-15] MEDS: Methylergonovine 0.2 MG/ML Ampul IM (10:00)
--- NOTE | 2024-09-15 10:12 | EX.PCM.OBVAG ---
Assessment & Plan (1) (spontaneous vaginal delivery): COMMENT: LC IOL girl Maternal Data Information NATHALY Calculator Estimated Delivery Date Method Current WG Current Estimate 09/19/24 LMP (Certain) 39w 3d Other Estimates 09/17/24 Ultrasound #1 39w 5d Vaginal Delivery Maternal Presentation Maternal Presentation: Medically Indicated Induction Maternal Presentation: at 39 weeks for IOL for AMA s/p cytotec, covarrubias bulb, pitocin, AROM. progressed slowly overnight but made change to fully dilated. Type of Induction: Pitocin, Covarrubias Bulb, Amniotomy and Cytotec Medical Reason for Induction: Maternal Medical Condition: list: Vaginal Delivery Information Procedure Performed: Spontaneous Vaginal Delivery Surgeon/Practitioner: Yi Ramirez Date of Procedure: 09/15/24 Pre-Procedure Diagnosis: see problem list Post-Procedure Diagnosis: Type of anesthesia: Epidural Estimated Blood Loss: 400 Time of Delivery: 09:29 Findings Description of procedure: Patient began pushing, heart rate elevated to 180s, decision for right mediolateral episiotomy to expedite delivery and delivered the head in the ANGELITA presentation. The head was delivered atraumatically . The anterior and posterior shoulders delivered without complication followed by the rest of the and the infant was placed on the maternal abdomen. Delayed cord clamping was employed for approximately 4minutes. Cord was clamped and cut and gentle traction was applied to the cord and the placenta delivered spontaneously immediately following it was noted to be intact with three-vessel cord. The perineum and vagina were inspected and noted to have no laceration. EBL was 400cc. Patient and infant tolerated delivery well. Dr. Mccray at bedside for end of pushing phase and delivery due to tachycardia along with general manager [employer] data [employer] Presentation: Vertex Amniotic Membrane Rupture Type: Artificial Amniotic Fluid Description: Clear Placental Delivery Description: Spontaneous Placenta Disposition: [facility] Cord Vessel Description: 3 Vessels Cord Entanglement: None Cord Gases: ABG and VBG Infant A Gender: Female Delayed Cord Clamping: Yes Post Vaginal Deli Medications given after delivery: IV Pitocin and IM Methergin Episiotomy Description: Right Mediolateral Laceration: 2nd degree Procedures Urinary/Genital [id number]: [id number] Vaginal Delivery global pkg
--- NOTE | 2024-09-15 10:25 | DCINST_ITS ---
Discharge Instructions Diet Discharge Diet: No restrictions DC O2, CPAP, BIPAP needs Home O2 Discharge instructions: No Dressing / Incision Discharge Activity: May Not Drive and May Shower May resume sexual activity in: 6 weeks Weight Bearing Status: Full weight bearing Dressing / Incision Call your doctor if your incision/area has: Sudden Increased Bleeding, Increased Pain/ Swelling and Foul Smelling Discharge Call your doctor if you observe: Fever of 101 or Higher, Numbness or Tingling, Change in Color, Inability to urinate, Inability to have a bowel movement, Using more than 1 pad per hour, Shortness of breath, Dizziness, Fainting spells, Chest pain, Calf discomfort and Uncontrolled pain Follow Up Care Please Follow Up With: Yi Ramirez CNM When: 6 weeks , please call office to make an appointment. Congratulations on the of your baby! Test Results: Test results from this visit will be discussed in further detail at your follow- up appointment, if applicable. Discharge Plan Admission Admit Date/Time: 09/13/24 19:20 Attending Provider: Yi Ramirez Primary Care Provider: Dorcas Lal NP Discharge Orders/Prescriptions Prescriptions: No Action PNV-DHA 27 mg iron-1 mg -300 mg capsule PO aspirin 81 mg tablet,delayed release (DR/EC) 81 mg PO DAILY inositol 500 mg tablet 2,200 mg PO DAILY progesterone micronized [Prometrium] 200 mg capsule 200 mg vaginal QHS 30 Days Qty: 30 3RF Rx Instructions: continue through 14 weeks (DME) Blood Glucose Test Strip See Rx Instructions .MEDSUPPLY Qty: 120 5RF Rx Instructions: As directed-fasting & 2 hr post meals (DME) blood-glucose meter Misc See Rx Instructions .MEDSUPPLY Qty: 1 0RF Rx Instructions: As directed- Test fasting and 2 hours after meals (DME) lancets Misc See Rx Instructions .MEDSUPPLY Qty: 200 5RF Rx Instructions: As directed-fasting & 2 hr post meals Referrals / Follow Up: Dorcas Lal NP, [employer] [Primary Care Provider] -
[2024-09-15] MEDS: Oxytocin 15 Units/NS 250ml 15 UNITS/250 ML IV.SOLN 83 UNITS IV (10:35)
[2024-09-15] MEDS: Naproxen 500 MG Tablet PO (19:30)
[2024-09-16] VITALS: BP 151/95; PULSE 91; RESP 16; TEMP 36.6; O2SAT 98
[2024-09-16 05:05] VITALS: BP 121/66; PULSE 68; RESP 16; TEMP 36.1; O2SAT 98
--- NOTE | 2024-09-16 08:53 | PN.OBGYN_ITS ---
Subjective Subjective Patient doing well without complaints. Tolerating PO. Ambulating and voiding without difficulty. Feeding well. Denies chest pain, shortness of breath, calf pain/swelling, fevers, chills, lightheadedness. Objective Data Objective Data Vital Signs: Vital Signs Temp Pulse Resp BP Pulse Ox O2 Del Method 97 F L 68 16 121/66 H 98 Room Air 09/16/24 05:05 09/16/24 05:05 09/16/24 05:05 09/16/24 05:05 09/16/24 05:05 09/16/24 05:05 Oxygen Delivery Method Room Air Weight: 206 lb 6.4 oz Body Mass Index (BMI) 35.4 Intake & Output: Intake and Output for Last 24 Hours 09/14/24 09/15/24 09/16/24 23:59 23:59 23:59 Intake Total 4279.10 / 4279.10 2098.82 / 2098.82 Output Total 2300 / 2300 2150 / 2150 Balance 1979. / 1978.10 -51.18 / -51.18 Lab / Micro Data 09/13/24 19:40 Physical Exam Const alert and oriented x3 Chest inspection of chest normal and inspection of breasts normal Resp normal respiratory effort and normal air movement Cardio regular rate and regular rhythm GI normal to inspection, nondistended, normoactive bowel sounds Uterus Palpation: uterus fundus firm Extremity normal to inspection, full ROM and no pedal edema Skin no rashes or lesions noted Psych mental status grossly normal Assessment & Plan (1) (spontaneous vaginal delivery): COMMENT: LC IOL girl (2) AMA (advanced maternal age) multigravida 35+: QUALIFIERS: Trimester: second trimester Qualified Code(s): O 09.522 - Supervision of elderly multigravida, second trimester COMMENT: 36wk: wkly NST and growth US IOL 09/13/23 @ 7pm cytotec PLAN: Plan s/p PPD # 1 1. routine post delivery care 2. breast feeding- support given 3. rh positive 4. rubella immune 5. plan early d/c home today
[2024-09-16] MEDS: Naproxen 500 MG Tablet PO (09:24)
[2024-09-16] MEDS: Senna/Docusate Sodium 1 Tablet PO (09:25)
[2024-09-16 09:28] VITALS: BP 129/77; PULSE 67; RESP 16; TEMP 36.3; O2SAT 100
== END 2024-09-16 15:00 | disposition home or self-care (01) | DRG 807 ==
PROVIDERS: Obstetrics & Gynecology; Admitting Provider Registered Nurse; PCP Nurse Practitioner Primary Care; Referring Provider Registered Nurse; Visit Provider Registered Nurse
DX: O99.214 Obesity complicating childbirth (principal); Z37.0 Single live birth; E66.9 Obesity, unspecified; Z3A.39 39 weeks gestation of pregnancy
CPT/HCPCS: 59025; 59050; 85025; 86780; 86850; 86900; 86901; A4216